=== PATIENT | female | born 1990 | race Caucasian/White ===

== ENCOUNTER → 2019-08-02 12:12 | Outpatient (CLI) | payer OTHER, SELFPAY ==
--- NOTE | 2019-08-02 12:15 | US_ITS ---
STUDY: FIRST TRIMESTER OBSTETRICAL ULTRASOUND REASON FOR EXAM: Female, 29 years old DATING -- PATIENT TOOK PLAN B PILL 07/04/19 -- CRAMPING -- PELVIC PAIN LMP: June 21, 2019 TECHNIQUE: Transvaginal TECHNICAL QUALITY: Adequate. PRIOR ULTRASOUND: None. FINDINGS: There is visualization of a single gestational sac in a normal intrauterine position. The mean sac diameter (MSD) measures 1.39 cm, indicating an estimated gestational age (EGA) of 6 weeks, 0 days. The gestational sac shape is within normal limits. There is a visualized yolk sac. The yolk sac measures 3.7 mm. The placenta is non-visualized. There is visualization of a live embryo. The crown-rump length (CRL) measures 2.1 mm, indicating an estimated gestational age (EGA) of 5 weeks, 6 days. There is demonstrated cardiac activity with a heart rate of 95 bpm. The estimated gestation age (EGA) by LMP is 6 weeks, 0 days. The estimated date of delivery (SHAUN) by LMP is March 27, 2020. The estimated gestation age (EGA) by US is 6 weeks, 0 days. The estimated date of delivery (SHAUN) by US is March 27, 2020. The uterus measures 7.5 cm x 5 cm x 4.5 cm. There is no demonstrated uterine fibroid. The cervix is closed. There is a 1.4 cm x 0.8 cm x 0.4 cm subchorionic hematoma. The right ovary measures 2 cm x 2.6 cm x 1.5 cm. tThere is no right ovarian cyst. There is no visualized right adnexal mass or complex lesion. The left ovary measures 2.4 cm x 2.5 cm x 2.4 cm.. There is a 1.2 cm x 1.2 cm x 0.8 cm follicle. There is no visualized left adnexal mass or complex lesion. There is minimal fluid in the cul de sac. US/Init OB < 14Wks US IMPRESSION: Single live intrauterine gestation with a mean gestational age of 6 weeks. heart rate of 95 bpm. Small subchorionic hematoma. Electronically Signed: Ilir Cornejo, at 10:39 EDT , Service support ,
== END ==
PROVIDERS: PCP Physician Assistant; Referring Provider Obstetrics & Gynecology; Visit Provider Obstetrics & Gynecology
DX: Z34.90 Encounter for supervision of normal pregnancy, unspecified, unspecified trimester (principal)
CPT/HCPCS: 76801; 93976

== ENCOUNTER → 2019-08-14 18:05 | Outpatient (CLI) | payer OTHER, SELFPAY ==
--- NOTE | 2019-08-14 18:10 | US_ITS ---
STUDY: FIRST TRIMESTER OBSTETRICAL ULTRASOUND REASON FOR EXAM: Female, 29 years old BROWN DISCHARGE DISCOMFORT LMP: June 21, 2019. TECHNIQUE: Transvaginal TECHNICAL QUALITY: Adequate. PRIOR ULTRASOUND: None. FINDINGS: There is visualization of a single gestational sac in a normal intrauterine position. The mean sac diameter (MSD) measures 2.35 cm, indicating an estimated gestational age (EGA) of 7 weeks, 3 days. The gestational sac shape is within normal limits. There is a visualized yolk sac. The yolk sac measures 4.2 mm. The placenta is non-visualized. There is visualization of a live embryo. The crown-rump length (CRL) measures 1.31 cm, indicating an estimated gestational age (EGA) of 7 weeks, 4 days. There is demonstrated cardiac activity with a heart rate of 154 bpm. The estimated gestation age (EGA) by LMP is 7 weeks, 5 days. The estimated date of delivery (SHAUN) by LMP is March 27, 2020. The estimated gestation age (EGA) by US is 7 weeks, 4 days. The estimated date of delivery (SHAUN) by US is March 28, 2020. The uterus measures 8.7 cm x 6.5 cm x 4.9 cm. There is no demonstrated uterine fibroid. The cervix is closed. The right ovary measures 2.4 cm x 1.8 cm x 1.3 cm. There is no right ovarian cyst. There is no visualized right adnexal mass or complex lesion. The left ovary measures 3.1 cm x 2.2 cm x 1.9 cm. A 2.1 cm x 1.4 cm x 1.3 cm corpus luteum cyst is seen within the left ovary There is no visualized left adnexal mass or complex lesion. There is minimal fluid in the cul de sac. US/Init OB < 14Wks US IMPRESSION: Single live uterine gestation with a mean gestational age of 7 weeks and 4 days. Electronically Signed: Ilir Cornejo, at 8:19 EDT , Service support ,
== END ==
PROVIDERS: PCP Physician Assistant; Visit Provider Obstetrics & Gynecology
DX: O20.0 Threatened abortion (principal); Z3A.00 Weeks of gestation of pregnancy not specified
CPT/HCPCS: 76801

== ENCOUNTER → 2019-08-29 13:50 | Outpatient (CLI) | payer OTHER, SELFPAY ==
[2019-08-29 13:47] VITALS: BMI 24.0
[2019-08-29 17:56] LABS: Amphetamine Urine VISTA NEGATIVE (<1000 ng/mL); Barbiturate Urine VISTA NEGATIVE (< 200 ng/mL); Benzodiazepine Urine VISTA NEGATIVE (< 200 ng/mL); Cocaine Urine VISTA NEGATIVE (< 300 ng/mL); Ecstacy Urine VISTA NEGATIVE (< 500 ng/mL); Methadone Urine VISTA NEGATIVE (< 300 ng/mL); PCP Urine VISTA NEGATIVE (< 25 ng/mL); THC Urine VISTA NEGATIVE (< 50 ng/mL); Vista UDS pH Range 6
[2019-08-29 19:24] LABS: Chlamydia Trachomatis by PCR Negative (Negative); Neisserai gonorrhoeae by PCR Negative (Negative); Probe Check PASS; Sample Adequacy Control PASS; Specimen Processing Control PASS
[2019-09-03 19:03] LABS: HPV Reflexed? NOT INDICATED
== END ==
PROVIDERS: PCP Physician Assistant; Referring Provider Obstetrics & Gynecology; Visit Provider Obstetrics & Gynecology
DX: Z34.00 Encounter for supervision of normal first pregnancy, unspecified trimester (principal); Z34.90 Encounter for supervision of normal pregnancy, unspecified, unspecified trimester; B58.9 Toxoplasmosis, unspecified; Z12.4 Encounter for screening for malignant neoplasm of cervix
CPT/HCPCS: 80307; 87086; 87088; 87491; 87591; 88175; G0145

== ENCOUNTER → 2019-08-31 18:04 | Outpatient (CLI) | payer OTHER, SELFPAY ==
[2019-08-29 13:47] VITALS: BMI 24.0
== END ==
PROVIDERS: PCP Physician Assistant; Visit Provider Obstetrics & Gynecology
DX: Z34.81 Encounter for supervision of other normal pregnancy, first trimester (principal); Z31.430 Encounter of female for testing for genetic disease carrier status for procreative management
CPT/HCPCS: 36415

== ENCOUNTER → 2019-09-16 11:37 | Outpatient (CLI) | payer OTHER, SELFPAY ==
[2019-08-29 13:47] VITALS: BMI 24.0
[2019-09-16 12:24] LABS: Absolute Lymphocyte Count 2.49 X10^3/uL (0.83-4.51); Absolute Neutrophil Count 8.3 X10^3/uL (2.0-7.7); Basophil# 0.04 X10^3/uL; Basophil% 0.3 % (0-1); Eosinophil# 0.14 X10^3/uL; Eosinophils% 1.2 % (0-5); Hematocrit 39.3 % (37-47); Hemoglobin 13.4 g/dL (12.0-15.0); Lymphocyte # 2.49 X10^3/ul (4.0); Lymphocyte % 21.1 % (19-41); Mean Corp Hgb Conc 34.1 g/dL (32-36); Mean Corpuscular Hgb 31.2 pg (27.0-32.0); Mean Corpuscular Volume 91.6 fL (81-99); Mean Platelet Vol. 9.5 fl (6.2-12.0); Monocyte# 0.72 X10^3/uL; Monocyte% 6.1 % (0-10); NRBC Flagged by Analyzer 0 % (0-5); Neutrophil # 8.33 X10^3/uL (2.7-7.7); Neutrophil % 70.7 % (47-70); Platelet Count 291 K/mm3 (150-450); RBC Distribution Width CV 12.2 % (11.6-14.6); RBC Distribution Width SD 40.6 fl (35.1-43.9); Red Blood Count 4.29 M/mm3 (4.2-5.4); White Blood Count 11.8 K/mm3 (4.4-11.0)
[2019-09-16 12:41] LABS: NATERA MAILED SPECIMEN
[2019-09-17 13:38] LABS: Toxoplasma Gondii IgG < 3.0 IU/mL (0.0-7.1); Toxoplasma Gondii IgM < 3.0 AU/mL (0.0-7.9)
[2019-09-18 09:30] LABS: HIV - WCH Non-Reactive (Nonreactive); Hepatitis B Surface Antigen Non-Reactive (Nonreactive); Hepatitis C Antibody Non-Reactive (Nonreactive); Rubella IgG 464.6 IU/mL
[2019-09-21 03:25] LABS: Rapid Plasmin Reagin (RPR) NONREACTIVE (NONREACTIVE)
== END ==
PROVIDERS: PCP Physician Assistant; Referring Provider Obstetrics & Gynecology; Visit Provider Obstetrics & Gynecology
DX: Z34.00 Encounter for supervision of normal first pregnancy, unspecified trimester (principal); Z20.7 Contact with and (suspected) exposure to pediculosis, acariasis and other infestations
CPT/HCPCS: 36415; 85025; 86592; 86703; 86762; 86777; 86778; 86803; 86850; 86900; 86901; 87340

== ENCOUNTER → 2019-10-25 11:38 | Outpatient (CLI) | payer OTHER, SELFPAY ==
[2019-10-25 11:04] VITALS: BMI 24.0
[2019-10-25 12:33] LABS: Absolute Lymphocyte Count 1.92 X10^3/uL (0.83-4.51); Absolute Neutrophil Count 7.9 X10^3/uL (2.0-7.7); Basophil# 0.03 X10^3/uL; Basophil% 0.3 % (0-1); Eosinophil# 0.11 X10^3/uL; Hematocrit 36.5 % (37-47); Hemoglobin 12.4 g/dL (12.0-15.0); Lymphocyte # 1.92 X10^3/ul (4.0); Lymphocyte % 17.9 % (19-41); Mean Corpuscular Hgb 30.9 pg (27.0-32.0); Mean Platelet Vol. 9.6 fl (6.2-12.0); Monocyte# 0.64 X10^3/uL; NRBC Flagged by Analyzer 0 % (0-5); Neutrophil # 7.93 X10^3/uL (2.7-7.7); Neutrophil % 74.1 % (47-70); Platelet Count 269 K/mm3 (150-450); RBC Distribution Width CV 12.6 % (11.6-14.6); RBC Distribution Width SD 40.8 fl (35.1-43.9); Red Blood Count 4.01 M/mm3 (4.2-5.4); White Blood Count 10.7 K/mm3 (4.4-11.0)
[2019-10-25 13:15] LABS: Thyroid Stim Hormone (TSH) 0.95 uIU/mL (0.358-3.74)
[2019-10-25 13:39] LABS: HIV - WCH Non-Reactive (Nonreactive); Hepatitis B Surface Antigen Non-Reactive (Nonreactive); Hepatitis C Antibody Non-Reactive (Nonreactive); Rubella IgG > 500.0 IU/mL
[2019-10-26 02:16] LABS: Rapid Plasmin Reagin (RPR) NONREACTIVE (NONREACTIVE)
[2019-10-26 10:59] LABS: Toxoplasma Gondii IgM < 3.0 AU/mL (0.0-7.9)
[2019-10-26 11:06] LABS: Toxoplasma Gondii IgG < 3.0 IU/mL (0.0-7.1)
== END ==
PROVIDERS: PCP Physician Assistant; Referring Provider Obstetrics & Gynecology; Visit Provider Obstetrics & Gynecology
DX: Z36.9 Encounter for antenatal screening, unspecified (principal)
CPT/HCPCS: 36415; 84443; 85025; 86592; 86703; 86762; 86777; 86778; 86803; 86850; 86900; 86901; 87340

== ENCOUNTER → 2019-12-20 09:32 | Outpatient (CLI) | payer OTHER, SELFPAY ==
[2019-11-22 11:41] VITALS: BMI 26.2
[2019-12-20 10:11] LABS: Absolute Lymphocyte Count 1.43 X10^3/uL (0.83-4.51); Absolute Neutrophil Count 8.2 X10^3/uL (2.0-7.7); Basophil# 0.03 X10^3/uL; Basophil% 0.3 % (0-1); Eosinophil# 0.08 X10^3/uL; Eosinophils% 0.8 % (0-5); Hemoglobin 11.8 g/dL (12.0-15.0); Lymphocyte # 1.43 X10^3/ul (4.0); Lymphocyte % 13.4 % (19-41); Mean Corp Hgb Conc 32.8 g/dL (32-36); Mean Corpuscular Hgb 31.4 pg (27.0-32.0); Mean Corpuscular Volume 95.7 fL (81-99); Mean Platelet Vol. 9.2 fl (6.2-12.0); Monocyte# 0.78 X10^3/uL; Monocyte% 7.3 % (0-10); NRBC Flagged by Analyzer 0 % (0-5); Neutrophil # 8.22 X10^3/uL (2.7-7.7); Neutrophil % 77.3 % (47-70); Platelet Count 282 K/mm3 (150-450); RBC Distribution Width SD 45.1 fl (35.1-43.9); Red Blood Count 3.76 M/mm3 (4.2-5.4); White Blood Count 10.6 K/mm3 (4.4-11.0)
[2019-12-20 10:37] LABS: Glucose Challenge Gest 1H 50g 157 mg/dL (70-140)
== END ==
PROVIDERS: PCP Physician Assistant; Referring Provider Obstetrics & Gynecology; Visit Provider Obstetrics & Gynecology
DX: Z13.1 Encounter for screening for diabetes mellitus (principal); O09.90 Supervision of high risk pregnancy, unspecified, unspecified trimester; Z3A.00 Weeks of gestation of pregnancy not specified
CPT/HCPCS: 36415; 82950; 85025

== ENCOUNTER → 2019-12-27 06:40 | Outpatient (CLI) | payer OTHER, SELFPAY ==
[2019-12-20 09:46] VITALS: BMI 22.4
[2019-12-27 08:38] LABS: Glucose GTT-Gestation. Fasting 85 mg/dL (<105)
[2019-12-27 08:39] LABS: Glucose GTT-Gestational 1 Hr 186 mg/dL (<190)
[2019-12-27 10:30] LABS: Glucose GTT-Gestational 2 Hr 178 mg/dL (<165)
[2019-12-27 11:07] LABS: Glucose GTT-Gestational 3 Hr 163 L (<145)
== END ==
PROVIDERS: PCP Physician Assistant; Referring Provider Obstetrics & Gynecology; Visit Provider Obstetrics & Gynecology
DX: Z13.1 Encounter for screening for diabetes mellitus (principal)
CPT/HCPCS: 36415; 82951; 82952

== ENCOUNTER 2020-01-24 16:00 | Outpatient (RCR) | payer OTHER, SELFPAY ==
[2019-12-20 09:46] VITALS: BMI 22.4
[2020-01-03 09:32] VITALS: BMI 23.6
== END 2020-01-24 23:59 | disposition home or self-care (01) ==
LOC: DC 16:00
PROVIDERS: PCP Physician Assistant; Visit Provider Nurse Practitioner Women's Health
DX: Z71.3 Dietary counseling and surveillance (principal); O24.419 Gestational diabetes mellitus in pregnancy, unspecified control; Z3A.00 Weeks of gestation of pregnancy not specified
CPT/HCPCS: 97802

== ENCOUNTER 2020-01-29 16:30 | Outpatient (CLI) | payer OTHER, SELFPAY ==
[2020-01-17 10:23] VITALS: BMI 27.9
[2020-01-29] VITALS (27 sets, daily range): BP systolic 88–131; BP diastolic 49–78; PULSE 89–119; RESP 16–20; TEMP 36.2–37.2; O2SAT 90–100; BMI 28.3
--- NOTE | 2020-01-29 17:14 | OB.TRI.HP_ITS ---
- Problem List (1) labor in third trimester Status: Acute Comment: 01/28 1-2/70/-1 transported to [facility]. (2) Family hx of ovarian malignancy Status: Acute Comment: Grandmother had ovarian cancer in her 40s. Very concerned about ovarian cancer risk. Discussed possible genetic testing. (3) Gestational diabetes Status: Acute Qualifiers: Comment: referral sent to [facility]. (4) Influenza vaccination declined Status: Acute Comment: 11/22/2019sc (5) Pyelectasis of fetus on ultrasound Status: Acute Comment: left kidney repeat growth q4 weeks, NL NIPT, plan FTC referral @ 30 weeks if persistent (6) cardiac arrhythmia Status: Acute Comment: FU echo in 10 wee. Listen to FHR for approx 1 minute at each visit, 01/15 nl echo and rhythm (7) Supervision of high-risk Status: Acute Qualifiers: Comment: PRR SHAUN 03/28/2020 Boy Spouse: Naima (8) Exposure to Toxoplasma species Status: Acute Comment: exposed at work, testing negative 10/25/19 (9) Thyroid dysfunction in Status: Acute Comment: NL TSH recheck in 4 weeks and qtrimester TSH Free T4 (10) Abnormal Pap smear of cervix Status: Acute Comment: pap done at [facility] (11) Status: Acute Qualifiers: Comment: NIPT low risk. carrier negative . AFP negative. anatomy reviewed History of Present Illness Date of Service: 01/29/20 Was patient seen by the physician?: Yes Reason For Visit: RULE OUT LABOR Date of Service: 01/29/20 Final SHAUN: 03/28/20 Gestational age: 31 Weeks and 4 Days History of Present Illness: 29-year-old G3, P0 at 31 weeks 4 days presents with contractions increasing in frequency since 2:00 this morning. Patient denies any vaginal bleeding or loss of fluid admits good movement. Contractions are every 1 to 2 minutes. Patient has had a complicated by GDM A1. 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 Denies: Diarrhea, Nausea, Vomiting Genitourinary: Denies: Dysuria, Hematuria Musculoskeletal: Denies: Joint Pain, Muscle pain Skin: Denies: Lesions, Rash Neurological: Denies: Blurred vision, Focal weakness, Headaches Psychiatric: Denies: Anxiety, Depression Endocrine: Denies: Heat/ Cold Intolerance Hematologic/ Lymphatic: Denies: Easy Bruising, Easy Bleeding Physical Exam Vitals: Vital Signs Pulse BP 101 H 121/78 H 01/29/20 16:53 01/29/20 16:53 General: Alert, Cooperative, No apparent distress HEENT: Atraumatic, Normocephalic. Negative for: Thyromegaly, Lymphadenopathy Cardiovascular: Regular rate Lungs: Normal air movement Abdomen: Soft, Non Tender, Gravid Neurological: Deep Tendon Reflexes 2+/4 and Symmetrical, Neuro grossly intact. 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 Negative for: Vulvar lesions Estimated gestational size: Appropriate for gestational size Presentation: Cephalic Cervix Dilation (cm): 1.5 - mid Station: -1 Effacement (%): 70 NST - FHR Rate Baby A Baseline: 140 Variability:: Moderate Accelerations:: 15 x 15 Decelerations:: None NST Reactive:: Yes FHR Category:: Category I Uterine Activity:: Q. 1 to 2 minutes Impression/Plan 29-year-old G3, P0 at 31 weeks 4 days presents with labor Recommend preparation for transport. Start magnesium sulfate, Celestone given, discussed with maternal- medicine. Multi Select Codes - Visit Charges Office Visit/Consults: 82197 OV L4 Est - Urinary/Genital Urinary/Genital CPT Codes: 82377-73 non-stress test Interp
[2020-01-29] MEDS: Lactated Ringers 1,000 ML 999 ML IV (17:15)
[2020-01-29 17:32] LABS: Absolute Lymphocyte Count 3.08 X10^3/uL (0.83-4.51); Absolute Neutrophil Count 12.2 X10^3/uL (2.0-7.7); Basophil# 0.05 X10^3/uL; Basophil% 0.3 % (0-1); Eosinophil# 0.14 X10^3/uL; Eosinophils% 0.8 % (0-5); Hematocrit 38.7 % (37-47); Hemoglobin 12.8 g/dL (12.0-15.0); Lymphocyte # 3.08 X10^3/ul (4.0); Lymphocyte % 18.2 % (19-41); Mean Corp Hgb Conc 33.1 g/dL (32-36); Mean Corpuscular Hgb 30.3 pg (27.0-32.0); Mean Corpuscular Volume 91.7 fL (81-99); Mean Platelet Vol. 9.3 fl (6.2-12.0); Monocyte# 1.28 X10^3/uL; Monocyte% 7.6 % (0-10); NRBC Flagged by Analyzer 0 % (0-5); Neutrophil # 12.17 X10^3/uL (2.7-7.7); Neutrophil % 71.8 % (47-70); Platelet Count 331 K/mm3 (150-450); RBC Distribution Width CV 12.4 % (11.6-14.6); RBC Distribution Width SD 41.5 fl (35.1-43.9); Red Blood Count 4.22 M/mm3 (4.2-5.4); White Blood Count 16.9 K/mm3 (4.4-11.0)
[2020-01-29] MEDS: Magnesium Sulfate 4gm/100mL 4 GM/100 ML IV.SOLN. IV ×2 (17:38→18:04)
[2020-01-29] MEDS: NIFEdipine 10 MG Capsule PO (17:52)
[2020-01-29] MEDS: Betamethasone/Betamethasone 30 MG/5 ML Vial 12 MG IM (17:53)
[2020-01-29] MEDS: Magnesium Sulfate 20 GM/500 ML BAG IV (18:08)
--- NOTE | 2020-01-29 20:05 | NURSING ---
pt transported to [facility]
== END 2020-01-29 19:25 | disposition home or self-care (01) ==
LOC: WPOUT 16:39 → WP 16:39
PROVIDERS: PCP Physician Assistant; Visit Provider Obstetrics & Gynecology
DX: O60.03 Preterm labor without delivery, third trimester (principal); Z3A.31 31 weeks gestation of pregnancy
CPT/HCPCS: 96361; 96365; 59025; 59050; 85025; 94760; 96372; 99218; J7120; G0378; J0702

== ENCOUNTER → 2020-02-14 12:39 | Outpatient (CLI) | payer OTHER, SELFPAY ==
[2020-02-14 08:38] VITALS: BMI 24.3
== END ==
PROVIDERS: PCP Physician Assistant; Referring Provider Obstetrics & Gynecology; Visit Provider Obstetrics & Gynecology
DX: O26.899 Other specified pregnancy related conditions, unspecified trimester (principal); R10.2 Pelvic and perineal pain; Z3A.00 Weeks of gestation of pregnancy not specified
CPT/HCPCS: 87077; 87086; 87088

== ENCOUNTER 2020-03-02 08:45 | Outpatient (CLI) | payer OTHER, SELFPAY ==
[2020-02-28 12:02] VITALS: BMI 25.1
[2020-03-02 08:54] VITALS: BP 121/77; PULSE 96
[2020-03-02 08:57] VITALS: TEMP 37.1
[2020-03-02 09:06] VITALS: BMI 28.7
[2020-03-02 09:57] LABS: ROM Internal Control Test YES-OK TO RESULT pt. (Internal QC); ROM Patient Test Negative (Negative)
--- NOTE | 2020-03-02 10:16 | US_ITS ---
STUDY: OBSTETRICAL ULTRASOUND - BIOPHYSICAL PROFILE REASON FOR EXAM: Female, 29 years old. decelerations LMP: Unknown. PRIOR ULTRASOUND: None. TECHNIQUE: Transabdominal ultrasound evaluation was performed. FINDINGS: There is a single intrauterine fetus. The fetus is in a cephalic presentation. There is demonstrated cardiac activity with a heart rate of 150 bpm. There is a normal amniotic fluid volume. The amniotic fluid index (SERGEY) is 11.3 cm. The placenta is anterior in location and is not low lying. Incidentally noted is hydronephrosis in the left kidney. BIOPHYSICAL PROFILE: Breathing Movements (FBM): 0 Gross Body Movements (GBM): 2 Tone (FT): 2 Amniotic Fluid Volume (AFV): 2 TOTAL SCORE: 6 / 8 US/Biophysical Prof W/O Non Stres IMPRESSION: Biophysical profile score 6/8 with no breathing movements observed. left hydronephrosis. Electronically Signed: Jean Hopkins, at 13:17 EST Tel , Service support ,
[2020-03-02 10:57] VITALS: BP 125/69; PULSE 85
[2020-03-02 12:07] VITALS: BP 126/78; PULSE 89
[2020-03-02 14:20] VITALS: BP 128/62; PULSE 76
[2020-03-02 14:22] VITALS: TEMP 37
--- NOTE | 2020-03-02 14:54 | OB.TRI.HP_ITS ---
- Problem List (1) Abnormal heart rate affecting Status: Acute (2) Vaginal discharge during Status: Acute History of Present Illness Date of Service: 03/02/20 Was patient seen by the physician?: Yes Reason For Visit: R/O LABOR Date of Service: 03/02/20 Final SHAUN: 03/28/20 Gestational age: 36 Weeks and 2 Days History of Present Illness: 29-year-old G1, P0 at 36 weeks gestation presents for leakage of fluid. ROM plus was negative. Reports intermittent gushes of fluid since yesterday. Has not had continuous leakage of fluid. Reports a regular contractions, but not painful. Denies vaginal bleeding. Denies decreased movement. While in triage, patient had symptomatic hypoglycemia which was corrected with juice. 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 Leakage of fluid -Reports only occasional gushes of fluid. -ROM plus negative. -3 cm immediately after placed on the monitor. Cervix rechecked 2 hours later and no change made. Abnormal heart rate. -Isolated variable deceleration on the monitor lasting approximately 2 minutes during an episode of hypoglycemia. -Patient monitored for 2 additional hours and had no further decelerations with category 1 tracing with moderate variability and spontaneous accelerations. -Formal biophysical profile performed with 2 points taken off for breathing, however patient had not eaten anything for multiple hours at this time and the baby had been category 1. I personally repeated her biophysical profile at bedside after giving her juice and crackers and baby had spontaneous breathing movements and was given an 8 out of 8 biophysical profile. - status reassuring after multiple hours of monitoring and 8 out of 8 biophysical profile. Patient discharged home in stable condition. Will have patient return Wednesday for repeat biophysical profile. Multi Select Codes - Visit Charges Office Visit/Consults: 39225 OV L3 Est - Urinary/Genital Urinary/Genital CPT Codes: 61667-71 non-stress test Interp
== END 2020-03-02 15:00 | disposition home or self-care (01) ==
LOC: WPOUT 08:48 → WP 08:48
PROVIDERS: PCP Physician Assistant; Referring Provider Obstetrics & Gynecology; Visit Provider Obstetrics & Gynecology
DX: O36.8330 Maternal care for abnormalities of the fetal heart rate or rhythm, third trimester, not applicable or unspecified (principal); Z3A.36 36 weeks gestation of pregnancy; O99.283 Endocrine, nutritional and metabolic diseases complicating pregnancy, third trimester; E16.2 Hypoglycemia, unspecified; N89.8 Other specified noninflammatory disorders of vagina
CPT/HCPCS: 59025; 59050; 76815; 76819; 84112; 99218; G0378

== ENCOUNTER → 2020-03-05 14:36 | Outpatient (CLI) | payer OTHER, SELFPAY ==
[2020-03-02 09:06] VITALS: BMI 28.7
[2020-03-05 14:01] VITALS: BMI 27.4
--- NOTE | 2020-03-05 14:38 | US_ITS ---
STUDY: OBSTETRICAL ULTRASOUND - BIOPHYSICAL PROFILE REASON FOR EXAM: Female, 29 years old . well-being LMP: 06/21/2019. PRIOR ULTRASOUND: 08/02/2019, 08/14/2019 and 03/02/2020 TECHNIQUE: Transabdominal TECHNICAL QUALITY: Adequate. FINDINGS: There is a single intrauterine fetus. The fetus is in a cephalic presentation. There is demonstrated cardiac activity with a heart rate of 150 bpm. There is a normal amniotic fluid volume. The largest amniotic fluid pocket measures 5.34 cm. The amniotic fluid index (SERGEY) is 12.6 cm. The placenta is anterior in location and is not low lying. There are Grade . 3 placental changes. Age by LMP: 36 weeks, 6 days. SHAUN by LMP: 03/27/2020. age by prior US: 36 weeks, 6 days. SHAUN by prior US: 08/25/2020. BIOPHYSICAL PROFILE: Breathing Movements (FBM): 2 Gross Body Movements (GBM): 2 Tone (FT): 2 Amniotic Fluid Volume (AFV): 2 TOTAL SCORE: 8 / 8 US/Biophysical Prof W/O Non Stres IMPRESSION: Normal biophysical profile of 8/8. Electronically Signed: Josse Calderon DO at 22:43 EST Tel [phone], Service support ,
== END ==
PROVIDERS: PCP Physician Assistant; Referring Provider Obstetrics & Gynecology; Visit Provider Obstetrics & Gynecology
DX: O36.8390 Maternal care for abnormalities of the fetal heart rate or rhythm, unspecified trimester, not applicable or unspecified (principal); Z3A.00 Weeks of gestation of pregnancy not specified
CPT/HCPCS: 76819

== ENCOUNTER 2020-03-11 14:50 | Inpatient (IN) | payer OTHER, SELFPAY ==
[2020-03-07 08:10] VITALS: BMI 27.5
[2020-03-11] VITALS (24 sets, daily range): BP systolic 102–201; BP diastolic 54–122; PULSE 88–124; TEMP 36.2–36.9; O2SAT 88–100; BMI 30.2
[2020-03-11 14:46] LABS: ROM Internal Control Test YES-OK TO RESULT pt. (Internal QC)
[2020-03-11 14:47] LABS: ROM Patient Test POSITIVE (Negative)
[2020-03-11] MEDS: Lactated Ringers 1,000 ML 200 ML IV ×2 (15:20→20:38)
--- NOTE | 2020-03-11 15:40 | HP.PCM_ITS ---
- Problem List (1) SROM (spontaneous rupture of membranes) Status: Acute (2) Abnormal Pap smear of cervix Status: Acute Comment: pap done at [facility] (3) Abnormal heart rate affecting Status: Acute (4) Exposure to Toxoplasma species Status: Acute Comment: exposed at work, testing negative 10/25/19 (5) Family hx of ovarian malignancy Status: Acute Comment: Grandmother had ovarian cancer in her 40s. Very concerned about ovarian cancer risk. Discussed possible genetic testing. (6) cardiac arrhythmia Status: Acute Comment: FU echo in 10 wee. Listen to FHR for approx 1 minute at each visit, 01/15 nl echo and rhythm (7) GBS (group B streptococcus) UTI complicating Status: Acute Qualifiers: Comment: antibiotic during labor (8) Gestational diabetes Status: Acute Qualifiers: Comment: referral sent to [place] and Nutrition. Started on insulin at 35w. 2x/wk NSTs and growths q4w. Delivery by 39 weeks. (9) Influenza vaccination declined Status: Acute Comment: 11/22/2019sc (10) Status: Acute Qualifiers: Comment: NIPT low risk. carrier negative . AFP negative. anatomy reviewed (11) labor in third trimester Status: Acute Comment: 01/28 1-/-1 transported to [facility]. no cervical change. received BMZ course. (12) Pyelectasis of fetus on ultrasound Status: Acute Comment: left kidney repeat growth q4 weeks, NL NIPT, plan FTC referral @ 30 weeks if persistent (13) Supervision of high-risk Status: Acute Qualifiers: Comment: PRR SHAUN 03/28/2020 Boy Spouse: Naima (14) Thyroid dysfunction in Status: Acute Comment: NL TSH recheck in 4 weeks and qtrimester TSH Free T4 (15) Vaginal discharge during Status: Acute History and Physical Date of Admission: 03/11/20 Intake Vital Signs 03/07/20 Height 5 ft 3 in 03/07/20 Weight: 155 lb 4 oz 03/07/20 BP 120/80 02/28/20 BMI 25.1 Intake Visit Reasons: 36WK OB / NST - US AT 9 [employer] Required: No Is patient in pain?: No Allergies ibuprofen Allergy (Severe, Verified 03/07/20 08:10) swelling Medications multivitamin no.47-iron fum 27 mg-folate no.1 1 mg-dha 300 mg capsule 1 cap PO DAILY 08/29/19 [History Confirmed 03/07/20] blood sugar diagnostic See Rx Instructions .ROUTE .MEDSUPPLY #100 ea 12/27/19 [Rx Confirmed 03/07/20] blood-glucose meter See Rx Instructions .ROUTE .MEDSUPPLY #1 ea 12/27/19 [Rx Confirmed 03/07/20] acetaminophen 325 mg capsule 325 mg PO ONCE PRN 01/12/20 [History Confirmed 03/07/20] flash glucose sensor See Rx Instructions .ROUTE .MEDSUPPLY #2 ea 01/19/20 [Rx Confirmed 03/07/20] pen needle, diabetic 32 gauge x See Rx Instructions .ROUTE .MEDSUPPLY #50 ea 02/26/20 [Rx Confirmed 03/07/20] Insulin NPH Human Isophane [Humulin N Kwikpen] 8 unit SQ BREAKFAST 03/02/20 [History Confirmed 03/07/20] Insulin NPH Human [Humulin N NPH Insulin KwikPen] 6 unit SC QHS 03/02/20 [History Confirmed 03/07/20] Last Menstral Period: 06/21/19 Zika: Zika virus screening: Negative : No PFSH PFSH Medical History Thyroid dysfunction in (Acute) Abnormal Pap smear of cervix (Acute) Optic nerve disorder (Acute) Tonsil stone (Acute) Surgical History H/O wisdom tooth extraction (Acute) Family History Father Hypertension Cancer, Onset Age: 57 prostate Mother Degenerated intervertebral disc Hypotension Grandfather Cancer Grandfather Cancer Bladder Diabetes Grandmother Cancer cervix Diabetes Social History (Updated 03/07/20 @ 09:52 by Linda Noriega NP, NET FINISHER-C) adopted: No household members: spouse housing: house current occupational status: employed current occupation: [employer] current occupational exposures/hazards: Yes pets and animals: Yes history of recent travel: No sexually active: Yes Smoking Status: Never smoker second hand exposure: No alcohol intake: current alcohol intake frequency: holidays/special occasions only substance use type: does not use seatbelt use: sometimes do you feel safe at home: Yes additional social history: Dat Cantu Pregancy History 3 Elective abortions 2 Hx Para 0 Spontaneous abortions Hx # Term Pregnancies Ectopic pregnancies Hx # Pregnancies Multiple births # of living children HPI 36WK OB / NST - US AT 9: Details: JOAN ONOFRE is a 29 year old @ 37 weeks presents with SROM clear fluid 3 cm and dilated. she has had a complicated by PTL and GDMA2. OB Visit SHAUN Calculator Estimated Delivery Date Method Current WG Current Estimate 03/28/20 Ultrasound #1 37w 0d Other Estimates 03/29/20 Ultrasound #2 36w 6d Expected Delivery Route/Plan Labor Preferences- labor support person: Naima, has met александр Cline pain management options preferred: epidural cut cord/dad catch: : yes PP control planned: vasectomy done discussed possible routes of delivery and associated risks: discussed possible delivery modalities and possible indications for each including R/B/A of , VAVD, FAVD, and CS. questions answered. special requests: none Specific Issue/Plans flu vaccine: declined tdap vaccine: considering rhogam: na LARC form signed: 12/19 Problem list reviewed and updated with the most current plan of care details and appropriate orders placed. Relevant counseling for the gestational age provided. Continue routine care and follow up unless otherwise noted in visit notes/problem list details Initial Weight: 123 lb Date EGA Weight BP Urine Prot Glucose FHR FuHt Pres Dilation Effaced St Visit Note 09/27/19 13w 6d 127 lb 2 oz (+4 lb 2 oz) 106/64 Negative Negative 160 SM- no vb cramping. discussed limiting mask use outside due to difficulty breathing with asthma 10/25/19 17w 6d 129 lb (+6 lb) 102/80 150 SM- no vb lof good fm no regular ctx SM- no vb lof good fm no regular ctx, discussed having a cleaning maid 11/22/19 21w 6d 134 lb (+11 lb) 120/58 Negative Negative 150 SM- no vb lof some fm no regular ctx 12/20/19 25w 6d 135 lb (+12 lb) 120/80 Negative 100 g/dL 146 MH-NO VB, LOF, CTX. Still with some mid back discomfort, seeing chiropractor. UA dip X 10 neg today. Not enough specimen for culture. Enc eric band, consider PT. Denies urinary sx. Plans CB classes. Considering tdap. MH-NO VB, LOF, CTX. Still with some mid back discomfort, seeing chiropractor. UA dip X 10 neg today. Not enough specimen for culture. Enc eric band, consider PT. Denies urinary sx. Plans CB classes. Considering tdap. Following with [facility] for echo and kidney issue 01/03/20 27w 6d 142 lb (+19 lb) 114/62 Negative Negative 147 28 MH-No VB, LOF. New GDM:appt sched with Dr March and dietitian. Reviewed BS checks and normal reading. Plan TSH, T$ and tdap next visit per her request. Back pain-seeing chiropractor. MH-No VB, LOF. New GDM:appt sched with Dr March and dietitian. Reviewed BS checks and normal reading. Plan TSH, T$ and tdap next visit per her request. Back pain-seeing chiropractor. Appt with [facility] US and echo scheduled. 01/17/20 29w 6d 143 lb 2 oz (+20 lb 2 oz) 128/70 Negative Negative 145 29 GP - no LOF, VB, DFM, ctx. Insulin sensor 50 points off from fingerstick - encouraged to call endo. Discussed [facility] ovarian cancer - considering genetic testing. 02/06/20 32w 5d 143 lb (+20 lb) 124/72 Negative Negative 140 32 SM- no vb lof good fm no regular ctx but still some irregular. BS controlled. 02/14/20 33w 6d 146 lb (+23 lb) 122/78 Trace Negative 150 34 Cephalic 2 70 -2 GP - no LOF, VB, DFM. Rep orts blood sugars increasing - recommended contacting endo. Reports continued intermittent contractions. Labor precautions reviewed. 02/28/20 35w 6d 151 lb (+28 lb) 124/78 Negative Negative 36 Cephalic GP - no LOF, VB, DFM, ctx. Started on insulin. Discussed needs twice weekly testing and growth US. Has appointment for US with [facility] next week. Discussed delivery by 39 weeks. 03/05/20 36w 5d 155 lb (+32 lb) Negative Negative 150 MH-NST only reactive 03/07/20 37w 0d 155 lb 4 oz (+32 lb 4 oz) 120/80 Negative Negative 150 37 Cephalic MH-NST reactive but noted CTX q6min. Palpated but not felt per patient. NO VB, LOF. Good FM. Patient with MFM US and BPP immediately after NST ACOG First Trimester First Trimester: Desire for , Alcohol, Tobacco Cessation, Illicit/R ecreational Drug/Substance Use, Intimate Partner Violence, Barriers to care, Unstable Housing, Communication Barriers, Environmental/Work Hazards, Anticipated Course of Care, Toxoplasmosis Precations, Use of Any medications, Sexual activity, Exercise, Dental Care, Sauna/Hot tub use, Seat Belt use, Childbirth classes/Hospital facilities, , Travel, Indications for US and Screening for Aneuploidy Second Trimester Second Trimester: Signs and Symptoms of Labor, Selecting a care provider, Reproductive Life Planning, Care Planning, Depression/Anxiety and Intimate Partner Violence; discussed Tobacco Cessation Diagnostics Diagnostics Diagnostics Hgb 12.8 g/dL (12.0-15.0) 01/29/20 Hct 38.7 % (37-47) 01/29/20 Details: HIV: Urine Culture: Sequential Screen: NIPT Screen: ROS Const Reports system reviewed and no additional complaints, except as documented Card Reports system reviewed and no additional complaints, except as documented Resp Reports system reviewed and no additional complaints, except as documented GI Reports system reviewed and no additional complaints, except as documented, Reports nausea Reports system reviewed and no additional complaints, except as documented Musc Reports system reviewed and no additional complaints, except as documented all other systems reviewed and negative Exam Const General: cooperative, healthy appearing, comfortable [facility] Head: normal to inspection Nose: external nose normal Face and sinus: normal facial exam Neck Neck: normal visual inspection, full ROM, no lymphadenopathy Thyroid: thyroid normal Chest Chest palpation & inspection: normal inspection of the chest Resp Effort & Inspection: normal respiratory effort GI Inspection: normal to inspection Palpation: soft, other (gravid uterus) Other: vertex and appropriate size for gestational age Other: Cervical Exam: 70/-2 clear SROM Extrem General: pedal edema Office Procedures OB NST Non-Stress Test Indications for Monitoring: Yes diabetes Heart Rate Baseline: 150 Heart Rate Variability: marked Movement: Present Heart Rate Accelerations: Present Decelerations: Present (X 1 with CTX) Impression: Yes Equivocal Non-stress test Details: To [facility] today US for growth and BPP Results POC Urinalysis 2 Dip (Clinic) Office Urine Glucose Negative Last Edit by Zena Guzman on 03/07/20 08:19 Office Urine Protein Negative Last Edit by Zena Guzman on 03/07/20 08:19 Assessment & Plan Problems 1. Abnormal heart rate affecting O36.8390 2. Group B Streptococcus urinary tract infection affecting in third trimester O23.43; B95.1 antibiotic during labor 3. Insulin controlled gestational diabetes mellitus (GDM) in third trimester O24.414 referral sent to [facility]. Started on insulin at 35w. 2x/wk NSTs and growths q4w. Delivery by 39 weeks. 4. Influenza vaccination declined Z28.21 11/22/2019sc 5. Pyelectasis of fetus on ultrasound O35.8XX0 left kidney repeat growth q4 weeks, NL NIPT, plan FTC referral @ 30 weeks if persistent 6. cardiac arrhythmia FU echo in 10 wee. Listen to FHR for approx 1 minute at each visit, 01/15 nl echo and rhythm 7. Supervision of high risk in third trimester O09.93 PRR SHAUN 03/28/2020 Boy Spouse: Naima 8. Exposure to Toxoplasma species Z20.7 exposed at work, testing negative 10/25/19 9. Thyroid dysfunction in O99.280; E07.9 NL TSH recheck in 4 weeks and qtrimester TSH Free T4 10. 37 weeks gestation of Z3A.37 NIPT low risk. carrier negative . AFP negative. anatomy reviewed Patient presents IAL, plan expectant management for , pitocin PRN if needed Pain management: open to epidural. GBS positive plan IV PCN. Management of any complications: diabetes- insulin controlled I have reviewed the [facility] and made any clinically relevant updates. Orders Orders: OB NST Today O24.419 POC Urinalysis 2 Dip (Clinic) Today Coding Level of Care Code OB Routine Diagnoses Abnormal heart rate affecting O36.8390 Group B Streptococcus urinary tract infection affecting in third trimester O23.43; B95.1 ??Trimester: third trimester Insulin controlled gestational diabetes mellitus (GDM) in third trimester O24.414 ??Gestational diabetes mellitus control: insulin-controlled ??Trimester: third trimester Influenza vaccination declined Z28.21 Pyelectasis of fetus on ultrasound O35.8XX0 cardiac arrhythmia Supervision of high risk in third trimester O09.93 ??Trimester: third trimester Exposure to Toxoplasma species Z20.7 Thyroid dysfunction in O99.280; E07.9 37 weeks gestation of Z3A.37 ??Weeks of gestation: 37 weeks Additional Codes Non-Stress Test (61296)
[2020-03-11 15:51] LABS: Basophil# 0.04 X10^3/uL; Basophil% 0.3 % (0-1); Eosinophil# 0.06 X10^3/uL; Eosinophils% 0.5 % (0-5); Hematocrit 36.8 % (37-47); Hemoglobin 12.3 g/dL (12.0-15.0); Lymphocyte % 15.9 % (19-41); Mean Corp Hgb Conc 33.4 g/dL (32-36); Mean Corpuscular Hgb 30.1 pg (27.0-32.0); Mean Platelet Vol. 9.7 fl (6.2-12.0); Monocyte# 0.77 X10^3/uL; Monocyte% 6.4 % (0-10); NRBC Flagged by Analyzer 0 % (0-5); Neutrophil % 75.5 % (47-70); Platelet Count 280 K/mm3 (150-450); RBC Distribution Width CV 13.2 % (11.6-14.6); Red Blood Count 4.09 M/mm3 (4.2-5.4); White Blood Count 11.9 K/mm3 (4.4-11.0)
[2020-03-11 16:30] LABS: Bedside Glucose 113 mg/dL (70-110)
[2020-03-11 17:20] LABS: Bedside Glucose 82 mg/dL (70-110)
[2020-03-11] MEDS: fentaNYL 100 MCG/2 ML Ampul IV (17:28)
[2020-03-11] MEDS: Lactated Ringers 500 ML 999 ML IV (17:30)
[2020-03-11] MEDS: fentaNYL-bupivacaine (epidural) 100 ML BAG EPIDURAL ×2 (18:40→23:00)
[2020-03-11] MEDS: 0.9% Saline Lock 10 ML Syringe IV ×2 (20:38→23:00)
[2020-03-11] MEDS: Ondansetron 4 MG/2 ML Vial IV (20:38)
[2020-03-11] MEDS: proCHLORPERazine 10 MG/2 ML Vial IV (23:00)
[2020-03-12] VITALS (27 sets, daily range): BP systolic 95–161; BP diastolic 56–82; PULSE 86–146; RESP 16; TEMP 36.4–37.1; O2SAT 92–100
[2020-03-12] MEDS: fentaNYL-bupivacaine (epidural) 100 ML BAG EPIDURAL (03:56)
[2020-03-12] MEDS: Lactated Ringers 1,000 ML 200 ML IV (03:56)
[2020-03-12] MEDS: 0.9% Saline Lock 10 ML Syringe IV ×2 (05:57→10:16)
[2020-03-12] MEDS: Ondansetron 4 MG/2 ML Vial IV (05:57)
[2020-03-12] MEDS: Oxytocin 30 units/NS 500 ml 30 UNITS/500 ML IV.SOLN 334 UNITS IV (06:34)
[2020-03-12] MEDS: Methylergonovine 0.2 MG/ML Ampul IM (06:40)
--- NOTE | 2020-03-12 07:19 | PCM.OPRPT ---
Problem List (1) SROM (spontaneous rupture of membranes) Status: Acute (2) Abnormal Pap smear of cervix Status: Acute Comment: pap done at [facility] (3) Abnormal heart rate affecting Status: Acute (4) Exposure to Toxoplasma species Status: Acute Comment: exposed at work, testing negative 10/25/19 (5) Family hx of ovarian malignancy Status: Acute Comment: Grandmother had ovarian cancer in her 40s. Very concerned about ovarian cancer risk. Discussed possible genetic testing. (6) cardiac arrhythmia Status: Acute Comment: FU echo in 10 wee. Listen to FHR for approx 1 minute at each visit, 01/15 nl echo and rhythm (7) GBS (group B streptococcus) UTI complicating Status: Acute Qualifiers: Comment: antibiotic during labor (8) Gestational diabetes Status: Acute Qualifiers: Comment: referral sent to [place] and [facility]. Started on insulin at 35w. 2x/wk NSTs and growths q4w. Delivery by 39 weeks. (9) Influenza vaccination declined Status: Acute Comment: 11/22/2019sc (10) Status: Acute Qualifiers: Comment: NIPT low risk. carrier negative . AFP negative. anatomy reviewed (11) labor in third trimester Status: Acute Comment: 01/28 1-/-1 transported to [facility]. no cervical change. received BMZ course. (12) Pyelectasis of fetus on ultrasound Status: Acute Comment: left kidney repeat growth q4 weeks, NL NIPT, plan FTC referral @ 30 weeks if persistent (13) Supervision of high-risk Status: Acute Qualifiers: Comment: PRR SHAUN 03/28/2020 Boy Spouse: Naima (14) Thyroid dysfunction in Status: Acute Comment: NL TSH recheck in 4 weeks and qtrimester TSH Free T4 (15) Vaginal discharge during Status: Acute Report of Operation Date of Procedure: 03/12/20 Vaginal Delivery Maternal Presentation: Active Labor, Spontaneous Rupture of Membranes 29-year-old G3, P0 at 37 weeks presents with premature rupture of membranes. GDM A2 Amniotic Membrane Rupture Type: Spontaneous at home Amniotic Fluid Description: Clear Final SHAUN: 03/28/20 Gestational age: 37 Weeks and 5 Days Date of Procedure: 03/12/20 Pre-Operative Diagnosis: GDM A2 SROM maternal exhaustion Post-Operative Diagnosis: Same Surgery/ Procedure Performed: Vacuum Assisted Vaginal Delivery Type of Anesthesia: Epidural, Local with 1% lidocaine, Pudendal block with 1% lidocaine Description of Procedure: Patient began pushing and delivered the head in the ROP presentation. After almost 3 hours of pushing patient had maternal exhaustion and increased perineal swelling and discomfort. Vagina was Betadine prepped and bilateral pudendal block was placed with 20 cc of lidocaine total. Patient continued pushing and due to poor maternal effort and exhaustion patient was counseled regarding the risk benefits and alternatives of a vacuum operative vaginal delivery and patient and her agreed to proceed. Kiwi vacuum was applied the +3 station pulls were made with 3 contractions with 1 pop-off and the head was delivered atraumatically and a loose nuchal cord was seen x1 and the was delivered through. The anterior and posterior shoulders delivered without complication followed by the rest of the infant and the was placed on the maternal abdomen. Delayed cord clamping was employed for approximately 60 seconds. Cord was clamped and cut and gentle traction was applied to the cord and the placenta delivered spontaneously immediately following it was noted to be intact with three-vessel cord. The perineum and vagina were inspected and noted to have a second-degree perineal laceration that was still operator and therefore injected with 20 cc of 1% lidocaine and repaired in the usual fashion with 3-0 Vicryl Rapide mild uterine atony without hemorrhage was encountered and Pitocin and Hemabate and bimanual massage were used to remedy this.. EBL was 400 cc. Patient and infant tolerated delivery well. Presentation: ROP Placental Delivery Description: Spontaneous Placenta Disposition: [facility] Cord Vessel Description: 3 Vessels Cord Entanglement: Around neck x 1, loose Estimated Blood Loss: 400 A gender: Male Episiotomy Description: None Laceration: Perineal Extension/lac, 2nd degree Medications given after delivery: IV Pitocin Complications: None Multi Select Codes - Urinary/Genital Urinary/Genital CPT Codes: 12268 Vaginal Delivery global pkg - vacuum
[2020-03-12] MEDS: Acetaminophen 500 MG Tablet 1000 MG PO ×2 (08:29→16:35)
[2020-03-12] MEDS: Dibucaine 30 GM Tube 1 APPLIC TOPICAL (18:52)
[2020-03-13 01:23] VITALS: BP 92/41; BP 93/34; PULSE 86; RESP 16; TEMP 36.5
[2020-03-13 04:53] VITALS: BP 105/63; PULSE 84; RESP 14; TEMP 36.3
[2020-03-13] MEDS: Acetaminophen 500 MG Tablet 1000 MG PO ×3 (04:57→23:28)
--- NOTE | 2020-03-13 06:05 | NURSING ---
Asked patient to show this RN what her glucose monitoring system is reading for a fasting glucose. Monitor states 47. Patient states that she doesn't not feel good and has been really tired, has not eaten much. Provided patient with apple juice and crackers which she is consuming now. Patient alert and oriented.
--- NOTE | 2020-03-13 06:32 | NURSING ---
Patient's blood glucose monitoring system now reading 78. Patient reports feeling better.
--- NOTE | 2020-03-13 07:56 | PN.OBGYN_ITS ---
Patient Problems: Active and Suspected Problems (Last Updated 03/12/20 @ 11:49 by Sada Clemente) Family hx of ovarian malignancy (Acute) Grandmother had ovarian cancer in her 40s. Very concerned about ovarian cancer risk. Discussed possible genetic testing. Influenza vaccination declined (Acute) 11/22/2019sc Exposure to Toxoplasma species (Acute) exposed at work, testing negative 10/25/19 Abnormal Pap smear of cervix (Acute) pap done at [facility] Subjective: Patient doing well without complaints. Tolerating PO. Ambulating and voiding without difficulty. /pumping:baby in SCN for blood sugar issues but doing well. Denies chest pain, shortness of breath, calf pain/swelling, fevers, chills, lightheadedness. - Physical Exam Vitals/I&O's: Vital Signs Temp Pulse Resp BP Pulse Ox 97.3 F L 84 14 105/63 100 03/13/20 04:53 03/13/20 04:53 03/13/20 04:53 03/13/20 04:53 03/12/20 06:53 Oxygen Delivery Method Room Air Weight: 155 lb Body Mass Index (BMI) 30.2 Intake and Output for Last 24 Hours 03/11/20 03/12/20 03/13/20 23:59 23:59 23:59 Intake Total 1598.33 / 1598.33 33 / Output Total 500 / 500 Balance 1598.33 / 1598.33 1513.33 / 1513.33 General: Alert, Oriented x3 Abdomen: Soft, Non Tender, - - FF below U Microbiology Past 72 Hours 03/11/20 15:00 Mucosa - Nose SARS-CoV-2 Antigen (Rapid) - Final Current Medications Acetaminophen (Acetaminophen 500 Mg Tablet) 1,000 mg PO Q8H PRN PRN PRN Reason: Pain Score 1-3 Last Admin: 03/13/20 04:57 Dose: 1,000 mg Documented by: Bisacodyl (Bisacodyl 10 Mg Suppository) 10 mg RECTAL UD PRN PRN Reason: If no BM Dextrose (Dextrose 50%-Water 25 Gm/50 Ml Disp.Syrin) 0 gm IV X1 PRN; Protocol PRN Reason: Hypoglycemia Dibucaine (Dibucaine 30 Gm Tube) 1 applic TOPICAL TID PRN PRN; Protocol PRN Reason: Discomfort Last Admin: 03/12/20 18:52 Dose: 1 applicatio Documented by: Glucagon (Glucagon 1 Mg/Ml Syringe) 1 mg IM .X1 PRN PRN Reason: Hypoglycemia Hydrocortisone (Hydrocortisone 2.5% Crm) 1 applic TOPICAL TID PRN PRN; Protocol PRN Reason: Discomfort Methylergonovine Maleate (Methylergonovine 0.2 Mg/Ml Ampul) 0.2 mg IM X1 PRN PRN Reason: Excess bleeding/uterine atony Ondansetron HCl (Ondansetron 4 Mg/2 Ml Vial) 4 mg IV Q4H PRN PRN PRN Reason: Nausea Oxycodone HCl (Oxycodone 5 Mg Tablet) 5 - 10 mg PO Q4H PRN PRN PRN Reason: Pain Score 4-10 Senna/Docusate Sodium (Senna/Docusate Sodium 1 Tablet) 1 - 2 tablet PO DAILY PRN PRN PRN Reason: Constipation Simethicone (Simethicone 80 Mg Tablet) 80 mg PO PCHS PRN PRN Reason: Indigestion/Stomach pain Sodium Chloride (0.9% Saline Lock 10 Ml Syringe) 5 - 15 ml IV UD PRN PRN Reason: SALINE FLUSH Last Admin: 03/12/20 10:16 Dose: 10 ml Documented by: Throat Lozenges (Benzocaine/Lanolin/Aloe Vera 1 Applic Each) 1 applic TOPICAL 4X/DAY PRN PRN; Protocol PRN Reason: perineal pain Last Admin: 03/12/20 19:01 Dose: 1 applic Documented by: Medical Necessity - Tobacco Use Smoking Status: Never smoker Assessment/Plan All Active Problems (Last Updated 03/12/20 @ 11:49 by Sada Clemente) Family hx of ovarian malignancy (Acute) Influenza vaccination declined (Acute) Exposure to Toxoplasma species (Acute) Abnormal Pap smear of cervix (Acute) Abnormal heart rate affecting (Resolved) cardiac arrhythmia (Resolved) GBS (group B streptococcus) UTI complicating (Resolved) Gestational diabetes (Resolved) (Resolved) labor in third trimester (Resolved) Pyelectasis of fetus on ultrasound (Resolved) SROM (spontaneous rupture of membranes) (Resolved) Supervision of high-risk (Resolved) Thyroid dysfunction in (Resolved) Vaginal discharge during (Resolved) Subchorionic hematoma in first trimester (Resolved) Supervision of normal first (Resolved) s/p VAVD PPD # 1 1. routine post delivery care 2. breast feeding- support given 3. rh positive 4. rubella immune 5. Blood sugars stable
[2020-03-13 08:26] VITALS: BP 109/61; PULSE 105; RESP 16; TEMP 36.7; O2SAT 98
[2020-03-13] MEDS: Senna/Docusate Sodium 1 Tablet PO (08:35)
[2020-03-13 13:36] VITALS: BP 111/61; PULSE 93; RESP 16; TEMP 36.7
[2020-03-13 21:15] VITALS: BP 106/55; PULSE 108; RESP 16; TEMP 37
[2020-03-14 02:08] VITALS: BP 100/54; PULSE 94; RESP 16; TEMP 37.1
[2020-03-14] MEDS: Senna/Docusate Sodium 1 Tablet PO (07:43)
[2020-03-14] MEDS: Acetaminophen 500 MG Tablet 1000 MG PO ×2 (07:43→13:40)
[2020-03-14 07:45] VITALS: BP 100/64; PULSE 82; RESP 14; TEMP 37.3; O2SAT 98
--- NOTE | 2020-03-14 08:39 | PN.OBGYN_ITS ---
Patient Problems: Active and Suspected Problems (Last Updated 03/12/20 @ 11:49 by Sada Clemente) Family hx of ovarian malignancy (Acute) Grandmother had ovarian cancer in her 40s. Very concerned about ovarian cancer risk. Discussed possible genetic testing. Influenza vaccination declined (Acute) 11/22/2019sc Exposure to Toxoplasma species (Acute) exposed at work, testing negative 10/25/19 Abnormal Pap smear of cervix (Acute) pap done at [facility] Subjective: Patient doing well without complaints. Tolerating PO. Ambulating and voiding without difficulty. feeding well. Denies chest pain, shortness of breath, calf pain/swelling, fevers, chills, lightheadedness. - Physical Exam Vitals/I&O's: Vital Signs Temp Pulse Resp BP Pulse Ox 99.1 F 82 14 100/64 98 03/14/20 07:45 03/14/20 07:45 03/14/20 07:45 03/14/20 07:45 03/14/20 07:45 Oxygen Delivery Method Room Air Weight: 155 lb Body Mass Index (BMI) 30.2 Intake and Output for Last 24 Hours 03/12/20 03/13/20 03/14/20 23:59 23:59 23:59 Intake Total 2012.33 / 2012.33 Output Total 500 / 500 Balance 1513.33 / 1513.33 General: Alert, Oriented x3 Microbiology Past 72 Hours 03/11/20 15:00 Mucosa - Nose SARS-CoV-2 Antigen (Rapid) - Final Current Medications Acetaminophen (Acetaminophen 500 Mg Tablet) 1,000 mg PO Q8H PRN PRN PRN Reason: Pain Score 1-3 Last Admin: 03/14/20 07:43 Dose: 1,000 mg Documented by: Bisacodyl (Bisacodyl 10 Mg Suppository) 10 mg RECTAL UD PRN PRN Reason: If no BM Dextrose (Dextrose 50%-Water 25 Gm/50 Ml Disp.Syrin) 0 gm IV X1 PRN; Protocol PRN Reason: Hypoglycemia Dibucaine (Dibucaine 30 Gm Tube) 1 applic TOPICAL TID PRN PRN; Protocol PRN Reason: Discomfort Last Admin: 03/12/20 18:52 Dose: 1 applicatio Documented by: Glucagon (Glucagon 1 Mg/Ml Syringe) 1 mg IM .X1 PRN PRN Reason: Hypoglycemia Hydrocortisone (Hydrocortisone 2.5% Crm) 1 applic TOPICAL TID PRN PRN; Protocol PRN Reason: Discomfort Methylergonovine Maleate (Methylergonovine 0.2 Mg/Ml Ampul) 0.2 mg IM X1 PRN PRN Reason: Excess bleeding/uterine atony Ondansetron HCl (Ondansetron 4 Mg/2 Ml Vial) 4 mg IV Q4H PRN PRN PRN Reason: Nausea Oxycodone HCl (Oxycodone 5 Mg Tablet) 5 - 10 mg PO Q4H PRN PRN PRN Reason: Pain Score 4-10 Senna/Docusate Sodium (Senna/Docusate Sodium 1 Tablet) 1 - 2 tablet PO DAILY PRN PRN PRN Reason: Constipation Last Admin: 03/14/20 07:43 Dose: 2 tablet Documented by: Simethicone (Simethicone 80 Mg Tablet) 80 mg PO PCHS PRN PRN Reason: Indigestion/Stomach pain Sodium Chloride (0.9% Saline Lock 10 Ml Syringe) 5 - 15 ml IV UD PRN PRN Reason: SALINE FLUSH Last Admin: 03/12/20 10:16 Dose: 10 ml Documented by: Throat Lozenges (Benzocaine/Lanolin/Aloe Vera 1 Applic Each) 1 applic TOPICAL 4X/DAY PRN PRN; Protocol PRN Reason: perineal pain Last Admin: 03/13/20 20:47 Dose: 1 applic Documented by: Medical Necessity - Tobacco Use Smoking Status: Never smoker Assessment/Plan All Active Problems (Last Updated 03/12/20 @ 11:49 by Sada Clemente) Family hx of ovarian malignancy (Acute) Influenza vaccination declined (Acute) Exposure to Toxoplasma species (Acute) Abnormal Pap smear of cervix (Acute) Abnormal heart rate affecting (Resolved) cardiac arrhythmia (Resolved) GBS (group B streptococcus) UTI complicating (Resolved) Gestational diabetes (Resolved) (Resolved) labor in third trimester (Resolved) Pyelectasis of fetus on ultrasound (Resolved) SROM (spontaneous rupture of membranes) (Resolved) Supervision of high-risk (Resolved) Thyroid dysfunction in (Resolved) Vaginal discharge during (Resolved) Subchorionic hematoma in first trimester (Resolved) Supervision of normal first (Resolved) s/p PPD # 2 1. routine post delivery care 2. breast feeding- support given 3. rh positive 4. rubella immune
--- NOTE | 2020-03-14 08:40 | DCINST_ITS ---
Discharge Diet: No Restrictions Discharge Activity: Return to Normal Activity, May not drive while taking narcotic pain medications., May Shower May resume sexual activity in: 4-6 weeks Call your doctor if your incision/area has: Continuous Slow Oozing, Sudden Increased Bleeding, Increased Pain/ Swelling, Increased Redness, Foul Smelling Discharge Additional Instructions: If you experience any of the following, contact your healthcare provider. * Bleeding that soaks a pad every hour for 2 hours * Fever 100.4 or higher * Unrelieved incision or abdominal pain * Swelling, redness, discharge or bleeding from your incision or episiotomy site * Your incision begins to separate * Problems urinating (including inability to urinate or burning while urinating). * Visual changes * Severe headache * Flu-like symptoms * Pain or redness in one of both of your breasts * Pain, warmth, tenderness or swelling in your legs, especially the calf area * Frequent nausea and vomiting * Symptoms of depression or anxiety If you experience any of the following, call 911 or go to the nearest Emergency Room. * Chest pain * Problems breathing * Seizure activity * Partial or complete paralysis of a body part, slurred speech, weakness or drooping of the face, or a sudden inability to walk or hold your balance Allergies/Adverse Reactions: Allergies ibuprofen Allergy (Severe, Verified 03/07/20 08:10) swelling Medications to take at Discharge multivitamin no.47-iron fum 27 mg-folate no.1 1 mg-dha 300 mg capsule 1 cap PO DAILY 08/29/19 blood sugar diagnostic See Rx Instructions .ROUTE .MEDSUPPLY #100 ea 12/27/19 blood-glucose meter See Rx Instructions .ROUTE .MEDSUPPLY #1 ea 12/27/19 acetaminophen 325 mg capsule 325 mg PO ONCE PRN 01/12/20 flash glucose sensor See Rx Instructions .ROUTE .MEDSUPPLY #2 ea 01/19/20 pen needle, diabetic 32 gauge x See Rx Instructions .ROUTE .MEDSUPPLY #50 ea 02/26/20 Insulin NPH Human Isophane [Humulin N Kwikpen] 8 unit SQ BREAKFAST 03/02/20 Insulin NPH Human [Humulin N NPH Insulin KwikPen] 6 unit SC QHS 03/02/20 Docusate Sodium [Colace] 100 mg PO BID #60 cap 01/07/21 Oxycodone HCl/Acetaminophen [Percocet 5-325] 1 - 2 tab PO Q6H PRN PRN 7 Days #15 tab 03/14/20 The following prescriptions were given: Docusate Sodium [Colace] 100 mg PO BID #60 cap Transmission Status: Pending to [facility] Oxycodone HCl/Acetaminophen [Percocet 5-325] 1 - 2 tab PO Q6H PRN PRN 7 Days #15 tab PRN Reason: Pain Transmission Status: Sent to [facility] Please Follow Up With: Yahaira Wright MD - [phone] When: Call to make an appointment with your doctor in 6 weeks. If you had elevated Blood pressure or 4th degree laceration you will need to be seen in 2 weeks. Primary Care Physician: Terence Smith PA [Primary Care Provider] - Test Results: Test results from this visit will be discussed in further detail at your follow- up appointment, if applicable.
[2020-03-14 13:36] VITALS: BP 107/54; PULSE 95; RESP 14; TEMP 37.1; O2SAT 98
== END 2020-03-14 16:35 | disposition home or self-care (01) | DRG 806 ==
LOC: WPOUT 14:58 → WP 14:58
PROVIDERS: Admitting Provider Obstetrics & Gynecology; PCP Physician Assistant; Referring Provider Obstetrics & Gynecology; Visit Provider Obstetrics & Gynecology
DX: O75.81 Maternal exhaustion complicating labor and delivery (principal); O98.82 Other maternal infectious and parasitic diseases complicating childbirth; Z37.0 Single live birth; O62.2 Other uterine inertia; O70.1 Second degree perineal laceration during delivery; O35.8XX0 Maternal care for other (suspected) fetal abnormality and damage, not applicable or unspecified; O69.81X0 Labor and delivery complicated by cord around neck, without compression, not applicable or unspecified; O24.424 Gestational diabetes mellitus in childbirth, insulin controlled; O60.14X0 Preterm labor third trimester with preterm delivery third trimester, not applicable or unspecified; Z3A.37 37 weeks gestation of pregnancy; Z80.41 Family history of malignant neoplasm of ovary; Z28.21 Immunization not carried out because of patient refusal; O23.43 Unspecified infection of urinary tract in pregnancy, third trimester; B95.1 Streptococcus, group B, as the cause of diseases classified elsewhere; O99.824 Streptococcus B carrier state complicating childbirth; O42.92 Full-term premature rupture of membranes, unspecified as to length of time between rupture and onset of labor; Z20.7 Contact with and (suspected) exposure to pediculosis, acariasis and other infestations; O99.280 Endocrine, nutritional and metabolic diseases complicating pregnancy, unspecified trimester; E07.9 Disorder of thyroid, unspecified
CPT/HCPCS: 59025; 59050; 82962; 84112; 85025; 86850; 86900; 86901; 87426; 99218; J7120; A4216; G0378; J2405

== ENCOUNTER → 2021-01-27 08:38 | Outpatient (CLI) | payer OTHER, SELFPAY ==
[2021-01-27 08:50] LABS: Absolute Lymphocyte Count 2.22 X10^3/uL (0.83-4.51); Absolute Neutrophil Count 4.6 X10^3/uL (2.0-7.7); Basophil# 0.05 X10^3/uL; Basophil% 0.7 % (0-1); Eosinophil# 0.15 X10^3/uL; Hematocrit 42.5 % (37-47); Hemoglobin 14.3 g/dL (12.0-15.0); Lymphocyte # 2.22 X10^3/ul (0.83-4.51); Lymphocyte % 29.3 % (19-41); Mean Corp Hgb Conc 33.6 g/dL (32-36); Mean Corpuscular Hgb 29.7 pg (27.0-32.0); Mean Corpuscular Volume 88.2 fL (81-99); Monocyte# 0.57 X10^3/uL; Monocyte% 7.5 % (0-10); NRBC Flagged by Analyzer 0 % (0-5); Neutrophil # 4.56 X10^3/uL (2.7-7.7); Neutrophil % 60.2 % (47-70); Platelet Count 328 K/mm3 (150-450); RBC Distribution Width CV 12.6 % (11.6-14.6); Red Blood Count 4.82 M/mm3 (4.2-5.4); White Blood Count 7.6 K/mm3 (4.4-11.0)
[2021-01-27 09:12] LABS: Thyroid Stim Hormone (TSH) 1.21 uIU/mL (0.358-3.74)
== END ==
PROVIDERS: PCP Physician Assistant; Referring Provider Obstetrics & Gynecology; Visit Provider Obstetrics & Gynecology
DX: R10.2 Pelvic and perineal pain (principal)
CPT/HCPCS: 36415; 84443; 85025

== ENCOUNTER → 2021-01-27 12:46 | Outpatient (CLI) | payer OTHER, SELFPAY ==
[2021-01-29 22:06] LABS: Chlamydia By Nucleic Acid AMP Negative (Negative)
[2021-01-29 22:48] LABS: Gonococcus By Nucleic Acid AMP Negative (Negative)
== END ==
PROVIDERS: PCP Physician Assistant; Visit Provider Obstetrics & Gynecology
DX: R10.2 Pelvic and perineal pain (principal)
CPT/HCPCS: 87070; 87077; 87086; 87088; 87205; 87491; 87591

== ENCOUNTER → 2021-11-13 | Outpatient (CLI) | payer OTHER, SELFPAY ==
[2021-11-13 12:28] LABS: Absolute Lymphocyte Count 2.29 X10^3/uL (0.83-4.51); Absolute Neutrophil Count 4.1 X10^3/uL (2.0-7.7); Basophil# 0.05 X10^3/uL; Basophil% 0.7 % (0-1); Eosinophil# 0.11 X10^3/uL; Eosinophils% 1.5 % (0-5); Hematocrit 44.5 % (37-47); Lymphocyte # 2.29 X10^3/ul (0.83-4.51); Lymphocyte % 32.2 % (19-41); Mean Corp Hgb Conc 33.7 g/dL (32-36); Mean Corpuscular Hgb 30.6 pg (27.0-32.0); Mean Corpuscular Volume 90.8 fL (81-99); Mean Platelet Vol. 9.2 fl (6.2-12.0); Monocyte# 0.51 X10^3/uL; Monocyte% 7.2 % (0-10); NRBC Flagged by Analyzer 0 % (0-5); Neutrophil # 4.13 X10^3/uL (2.7-7.7); Neutrophil % 58.1 % (47-70); Platelet Count 286 K/mm3 (150-450); RBC Distribution Width CV 11.9 % (11.6-14.6); RBC Distribution Width SD 39.8 fl (35.1-43.9); White Blood Count 7.1 K/mm3 (4.4-11.0)
[2021-11-13 13:02] LABS: Thyroid Stim Hormone (TSH) 1.68 uIU/mL (0.358-3.74)
== END | disposition home or self-care (01) ==
PROVIDERS: PCP Physician Assistant; Referring Provider Obstetrics & Gynecology; Visit Provider Obstetrics & Gynecology
DX: R53.83 Other fatigue (principal); R63.4 Abnormal weight loss
CPT/HCPCS: 36415; 84443; 85025

== ENCOUNTER → 2021-11-24 | Outpatient (CLI) | payer OTHER, SELFPAY ==
--- NOTE | 2021-11-24 10:22 | US_ITS ---
STUDY: ULTRASOUND OF THE FEMALE PELVIS - COMPLETE REASON FOR EXAM: Female, 31 years old. Left sided pelvic pain LMP: 11/06/2021 TECHNIQUE: Transabdominal and Transvaginal TECHNICAL QUALITY: Adequate. COMPARISON: None. FINDINGS: The uterus is anteverted and is in a midline position. The uterus measures 6.2 x 3.4 x 3.0 cm. Normal uterine cervix. The endometrium measures 3 mm in thickness, and is hyperechoic. There is no demonstrated endometrial mass. There is no demonstrated myometrial mass. I.U.D. - The patient does not have an I.U.D. The right ovary is visualized. The right ovary measures 3.1 x 2.6 x 1.9 cm. There is no right ovarian cyst or ovarian mass. There is no visualized right adnexal mass or complex lesion. There is normal arterial and normal venous vascularity. The left ovary is visualized. The left ovary measures 2.6 x 2.0 x 1.8 cm. There is no left ovarian cyst or ovarian mass. There is no visualized left adnexal mass or complex lesion. There is normal arterial and normal venous vascularity. There is no fluid in the cul-de-sac. The bladder is sonographically normal US/Transvaginal Non- IMPRESSION: No suspicious sonographic findings Electronically Signed: Zack Parker MD at 12:19 EDT ,
--- NOTE | 2021-11-24 10:22 | US_ITS ---
STUDY: ULTRASOUND OF THE FEMALE PELVIS - COMPLETE REASON FOR EXAM: Female, 31 years old. Left sided pelvic pain LMP: 11/06/2021 TECHNIQUE: Transabdominal and Transvaginal TECHNICAL QUALITY: Adequate. COMPARISON: None. FINDINGS: The uterus is anteverted and is in a midline position. The uterus measures 6.2 x 3.4 x 3.0 cm. Normal uterine cervix. The endometrium measures 3 mm in thickness, and is hyperechoic. There is no demonstrated endometrial mass. There is no demonstrated myometrial mass. I.U.D. - The patient does not have an I.U.D. The right ovary is visualized. The right ovary measures 3.1 x 2.6 x 1.9 cm. There is no right ovarian cyst or ovarian mass. There is no visualized right adnexal mass or complex lesion. There is normal arterial and normal venous vascularity. The left ovary is visualized. The left ovary measures 2.6 x 2.0 x 1.8 cm. There is no left ovarian cyst or ovarian mass. There is no visualized left adnexal mass or complex lesion. There is normal arterial and normal venous vascularity. There is no fluid in the cul-de-sac. The bladder is sonographically normal US/Pelvic (Non ) IMPRESSION: No suspicious sonographic findings Electronically Signed: Zack Parker MD at 12:19 EDT ,
== END | disposition home or self-care (01) ==
PROVIDERS: PCP Physician Assistant; Referring Provider Obstetrics & Gynecology; Visit Provider Obstetrics & Gynecology
DX: R10.2 Pelvic and perineal pain (principal)
CPT/HCPCS: 76706; 76830; 76856

== ENCOUNTER → 2022-11-26 | Outpatient (CLI) | payer OTHER, SELFPAY ==
[2022-12-02 17:07] LABS: HPV APTIMA, High Risk Negative (Negative)
== END | disposition home or self-care (01) ==
LOC: LABSPEC 15:30
PROVIDERS: PCP Physician Assistant; Referring Provider Obstetrics & Gynecology; Visit Provider Obstetrics & Gynecology
DX: Z12.4 Encounter for screening for malignant neoplasm of cervix (principal)
CPT/HCPCS: 87624; 88175; G0145

== ENCOUNTER → 2022-12-22 | Outpatient (CLI) | payer OTHER, SELFPAY ==
--- NOTE | 2022-12-22 13:39 | BI_ITS ---
MAMMOGRAPHY - BILATERAL DIAGNOSTIC REASON FOR EXAM: Female, 32 years old. bilateral breast pain PERTINENT HISTORY: Non-contributory. TECHNIQUE: Digital examination. Mediolateral oblique (MLO) and craniocaudad (CC) views of both breasts were obtained. CAD: CAD was performed on this study. COMPARISON: None. FINDINGS: Breast Composition: The breasts are extremely dense, which lowers the sensitivity of mammography. There are no dominant masses or suspicious calcifications. No other significant abnormalities are identified. BI/DIAG MAMM W/CAD, BILAT IMPRESSION: Stable bilateral diagnostic mammogram. Ultrasound will be obtained. ASSESSMENT CATEGORY: BIRADS Category 0: Incomplete. Need additional imaging evaluation. A letter regarding these results will be sent to the patient by the facility within 30 days. FOLLOW UP RECOMMENDATION: Ultrasound Recommended. (I) Approximately 10% of breast cancers are not detected by mammography. A normal mammogram should not delay biopsy of a clinically suspicious abnormality. Electronically Signed: Claus Araujo MD at 13:02 EDT ,
--- NOTE | 2022-12-22 13:39 | US_ITS ---
STUDY: ULTRASOUND BREAST - BILATERAL REASON FOR EXAM: Female, 32 years old. Burning sensation in both breasts. TECHNIQUE: Axial and longitudinal images of the BILATERAL breast were performed with a high resolution ultrasound transducer. # OF IMAGES: 64 COMPARISON: Comparison is made with prior mammogram done earlier in the day. FINDINGS: BILATERAL Breast: The upper half of both breasts were examined with ultrasound. There is a 3 mm x 4 mm x 2 mm cyst at the 2:00 position of the breast at 3 cm from the nipple. US/Breast Limited Unilateral IMPRESSION: 3 mm x 4 mm x 2 mm cyst at the 2:00 position of the breast at 3 cm from the nipple. ASSESSMENT CATEGORY: BIRADS Category 2: Benign. A letter regarding these results will be sent to the patient by the facility within 30 days. Electronically Signed: Ilir Cornejo MD at 11:02 EDT ,
== END | disposition home or self-care (01) ==
PROVIDERS: PCP Physician Assistant; Referring Provider Obstetrics & Gynecology; Visit Provider Obstetrics & Gynecology
DX: N64.4 Mastodynia (principal)
CPT/HCPCS: 76642; 77062; 77066; G0279

== ENCOUNTER → 2023-11-10 | Outpatient (CLI) | payer OTHER, SELFPAY ==
--- NOTE | 2023-11-10 15:21 | US_ITS ---
INDICATION: irregular menses EXAMINATION: Ultrasound US Pelvis Non OB Complete With Transvaginal Imaging TECHNIQUE: Transabdominal and transvaginal pelvic ultrasound was performed. Grayscale, spectral waveform, and color flow Doppler evaluation of the adnexa. COMPARISON: None. FINDINGS: UTERUS: Anteverted. The uterus measures 6.2 cm in length.. There is no uterine mass. The endometrial stripe measures 4 in AP diameter which is within normal limits. There is diffuse thickening of the junctional zone measuring up to 1.2 cm. There are also subendometrial echogenic linear striations/nodules. RIGHT OVARY: Measures 2.2 x 1.8 x 1.8 cm. Non-enlarged, normal echogenicity. There is normal arterial inflow and venous outflow present in the right ovary. LEFT OVARY: Measures 2.5 x 1.9 x 1.8 cm. Non-enlarged, normal echogenicity. There is normal arterial inflow and venous outflow present in the left ovary. FREE FLUID: Trace. US/Pelvic w/ Transvaginal IMPRESSION: Findings consistent with diffuse adenomyosis. Electronically Signed: Eber Younger MD at 23:28 EDT ,
[2023-11-10 17:11] LABS: Absolute Lymphocyte Count 2.54 X10^3/uL (0.83-4.51); Absolute Neutrophil Count 4.5 X10^3/uL (2.0-7.7); Basophil# 0.06 X10^3/uL; Basophil% 0.8 % (0-1); Eosinophil# 0.14 X10^3/uL; Eosinophils% 1.8 % (0-5); Hemoglobin 13.6 g/dL (12.0-15.0); Lymphocyte # 2.54 X10^3/ul (0.83-4.51); Lymphocyte % 33.1 % (19-41); Mean Corp Hgb Conc 33.2 g/dL (32-36); Mean Corpuscular Hgb 29.8 pg (27.0-32.0); Mean Corpuscular Volume 89.9 fL (81-99); Mean Platelet Vol. 9.6 fl (6.2-12.0); Monocyte# 0.46 X10^3/uL; NRBC Flagged by Analyzer 0 % (0-5); Neutrophil # 4.45 X10^3/uL (2.7-7.7); Platelet Count 305 K/mm3 (150-450); RBC Distribution Width CV 11.8 % (11.6-14.6); RBC Distribution Width SD 38.5 fl (35.1-43.9); Red Blood Count 4.56 M/mm3 (4.2-5.4); White Blood Count 7.7 K/mm3 (4.4-11.0)
== END | disposition home or self-care (01) ==
PROVIDERS: PCP Physician Assistant; Referring Provider Obstetrics & Gynecology; Visit Provider Obstetrics & Gynecology
DX: N92.6 Irregular menstruation, unspecified (principal)
CPT/HCPCS: 36415; 76830; 76856; 84443; 85025

== ENCOUNTER → 2023-11-30 | Outpatient (CLI) | payer OTHER, SELFPAY | END | disposition home or self-care (01) | PROVIDERS: PCP Physician Assistant; Referring Provider Obstetrics & Gynecology; Visit Provider Obstetrics & Gynecology | DX: Z00.00 Encounter for general adult medical examination without abnormal findings (principal) | CPT/HCPCS: 36415 ==